=== PATIENT | male | born 1980 | race Caucasian/White ===

== ENCOUNTER 2022-10-19 01:22 | Emergency (ER) | payer OTHER ==
[~2022-10-19] VITALS: Ht 172.7 cm; Wt 104.8 kg
[2022-10-19] MEDS ORDERED: IV NS 0.9% 1,000 ML BAG IV ONE (02:00)
--- NOTE | 2022-10-19 02:00 | NUR ---
JAMIL FROM HOME C/O R ARM & HAND SWELLING X2 WEEKS. PER PATIENT HE WAS LIFTING SOMETHING HEAVY 2 WEEKS AGO AND HE FELT SOMETHING SNAP ON HIS BICEPS. INITIALLY, THE SWELLING OF HAND STARTED THE NEXT DAY AND GRADUALLY INCREASED TILL IT REACHES THE WHOLE RIGHT ARM. HE IS CONCERN BECAUSE OF DISCOLORATION OF HIS RIGHT ARM AND HE FEELS LIKE HIS SKIN IS GONNA BREAK FROM TIGHTNESS. PLACED COMFORTABLY IN BED. VITALS CHECKED.
--- NOTE | 2022-10-19 02:26 | NUR ---
IV OUSMANE G18 INSERTED ON LEFT FA. BLOOD DRAWN AND SENT TO LAB
[2022-10-19 02:43] LABS: BASOPHILS # (AUTO) 0.1 K/uL (0.0-0.2); BASOPHILS % (AUTO) 0.6 % (0.0-2.0); EOSINOPHILS % (AUTO) 1.5 % (0.0-6.0); HEMATOCRIT 39 % (39-51); HEMOGLOBIN 12.8 g/dL (13.5-17.5); LYMPHOCYTES # (AUTO) 2.5 K/uL (0.8-4.8); LYMPHOCYTES % (AUTO) 29.7 % (20.0-44.0); MEAN CORPUSCULAR HGB CONC 33 g/dl (31.0-36.0); MEAN CORPUSCULAR VOLUME 77 fL (80-96); MONOCYTES # (AUTO) 0.4 K/uL (0.1-1.30); MONOCYTES % (AUTO) 5.1 % (2.0-12.0); NEUTROPHILS # (AUTO) 5.3 K/uL (1.8-8.9); NEUTROPHILS % (AUTO) 63.1 % (43.0-81.0); PLATELET COUNT (AUTO) 256 K/uL (150-450); RED BLOOD CELL COUNT(AUTO) 5.07 MIL/uL (4.5-6.0); WHITE BLOOD COUNT (AUTO) 8.4 K/uL (4.3-11.0)
--- NOTE | 2022-10-19 02:50 | NUR ---
US TECH AT PT'S BEDSIDE
[2022-10-19 02:53] LABS: CREATININE 0.9 mg/dL (0.6-1.3); POTASSIUM 3.9 mmol/L (3.5-5.1)
[2022-10-19] MEDS ORDERED: APIXABAN 5 MG TABLET ONE (03:21)
[2022-10-19] MEDS ORDERED: IV NS 0.9% 250 ML IV ONE (03:48)
[2022-10-19] MEDS ORDERED: IOHEXOL-300 100 ML VIAL IV ONE (03:48)
--- NOTE | 2022-10-19 03:50 | NUR ---
BROUGHT TO CT DEPT.
--- NOTE | 2022-10-19 04:26 | NUR ---
PATIENT COMPLAINING OF DIZZINESS AND WANTS TO STEP OUT FOR AIR FROM ER. EXPLAINED TO PT TO STAY IN BED BECAUSE HE COULD BE HAVING A REACTION FROM IV CONTRAST
[2022-10-19] MEDS ORDERED: APIX5TAB4 PO (04:50)
--- NOTE | 2022-10-19 05:38 | NUR ---
IV OUSMANE REMOVED
--- NOTE | 2022-10-19 05:38 | NUR ---
Patient discharged to home in stable condition. Written and verbal after care instructions given. Patient verbalizes understanding of instruction.
[2022-10-19 05:39] VITALS: BP 156/84
[2022-10-19] MEDS ORDERED: APIXABAN 5 MG TABLET PO SCH (09:00)
== END 2022-10-19 05:40 | disposition home or self-care (01) ==
LOC: ER 01:23
DX: I82.621 Acute embolism and thrombosis of deep veins of right upper extremity (principal); R07.89 Other chest pain; Z79.899 Other long term (current) drug therapy
CPT/HCPCS: 99285; 73201; 96360; 93971; 71045; 85025; 80048; 87040 ×2; 83605; 36415; J7030; J7050; Q9967